=== PATIENT | male | born 1980 | race Two or more races ===

== ENCOUNTER 2020-02-17 03:17 | Emergency (ER) | payer SELFPAY ==
[~2020-02-17] VITALS: Ht 170.2 cm; Wt 72.7 kg
[2020-02-17 05:21] LABS: COVID AG,FIA SOURCE NASOPHARYNGEAL
[2020-02-17] MEDS ORDERED: SODIUM CHLORIDE 0.9% 1,000 ML ONE (12:00)
[2020-02-17 13:44] VITALS: BP 126/80
== END 2020-02-17 14:00 | disposition home or self-care (01) ==
LOC: EMS 03:18
DX: F43.9 Reaction to severe stress, unspecified (principal); F43.20 Adjustment disorder, unspecified; F39 Unspecified mood [affective] disorder; Z20.828 Contact with and (suspected) exposure to other viral communicable diseases
CPT/HCPCS: 87426; 99285; J7030